=== PATIENT | female | born 1965 | race Caucasian/White ===

== ENCOUNTER 2017-10-11 16:08 | Emergency (ER) | payer OTHER ==
[~2017-10-11] VITALS: Ht 160 cm; Wt 147.0 kg
[~2017-10-11 16:08] MED LIST: BACLOFEN TD; DICYCLOMINE HCL10 MG PO; DIGESTIVE ADVA1 EAC1 PO; FEXOFENADINE H180 MG PO; GABAPENTIN TD; GABAPENTIN300 MG PO; NASACORT10.8 ML BOTH NARES; RECTICARE30 GM TP; TIZANIDINE HCL4 M1 PO; TYLENOL EXTRA500 MG PO
[2017-10-11 19:07] VITALS: BP 115/84
== END 2017-10-11 19:07 | disposition home or self-care (01) ==
LOC: EME 16:08
DX: M54.5 Low back pain (principal); V49.50XA Passenger injured in collision with unspecified motor vehicles in traffic accident, initial encounter; Y92.410 Unspecified street and highway as the place of occurrence of the external cause; G89.29 Other chronic pain; Z85.9 Personal history of malignant neoplasm, unspecified; Z88.5 Allergy status to narcotic agent; Z91.018 Allergy to other foods; Z88.8 Allergy status to other drugs, medicaments and biological substances
CPT/HCPCS: 72100; 99281; 99282